=== PATIENT | female | born 1975 | race Asian ===

== ENCOUNTER 2020-09-01 20:50 | Emergency (ER) | payer OTHER ==
[~2020-09-01] VITALS: Ht 157.5 cm; Wt 71.2 kg
[2020-09-01 20:57] VITALS: BP 137/89
--- NOTE | 2020-09-01 20:57 | NUR ---
TO BED AMBULATORY
--- NOTE | 2020-09-01 21:10 | NUR ---
PT. IS A 45 Y/O FEMALE THAT CAME TO ED WITH C/O OF N/V/D. PT. STATES IT STARTED AROUND 6-7PM AFTER EATING [employer]Q. UPON ASSESSMENT, PT. STATED THAT SHE VOMITED TWICE TODAY AND HAD DIARRHEA ONCE. PT. RATES HER PAIN AT A 0/10 AT THIS TIME AND VOICES NO COMPLAINTS. SKIN IS PINK/WARM/DRY; AAOX4 WITH EVEN AND STEADY GAIT; HR EVEN AND REGULAR; PT DENIES ANY FEVER, CP, SOB, OR COUGH AT THIS TIME; VSS; PATIENT POSITIONED FOR COMFORT; HOB ELEVATED; BEDRAILS UP X2; BED DOWN. ER MD MADE AWARE OF PT STATUS. PMH: PARANOID SCHIZOPRENIA ALLERGIES: NKA
--- NOTE | 2020-09-01 21:29 | NUR ---
LAB AT BEDSIDE
[2020-09-01] MEDS ORDERED: ONDANSETRON 4 MG ODT PO ONE (21:45)
[2020-09-01 21:48] LABS: BASOPHILS % (AUTO) 0.3 % (0.0-2.0); EOSINOPHILS % (AUTO) 0.3 % (0.0-4.0); HEMATOCRIT 33.9 % (36-48); LYMPHOCYTES # (AUTO) 0.9 K/uL (2.5-16.5); LYMPHOCYTES % (AUTO) 8.4 % (20.5-51.1); MEAN CORPUSCULAR HEMOGLOBIN 27 pg (27-31); MEAN CORPUSCULAR HGB CONC 33 g/dL (33-37); MEAN CORPUSCULAR VOLUME 84.2 fL (80-94); MONOCYTES # (AUTO) 0.5 K/uL (0.8-1.0); MONOCYTES % (AUTO) 5.1 % (1.7-9.3); NEUTROPHILS # (AUTO) 8.8 K/uL (1.8-7.7); NEUTROPHILS % (AUTO) 85.9 % (42.2-75.2); PLATELET COUNT (AUTO) 375 K/uL (140-450); RED BLOOD CELL COUNT(AUTO) 4.03 MIL/uL (4.20-5.40); RED CELL DISTRIBUTION WIDTH 15.5 % (11.6-13.7); WHITE BLOOD COUNT (AUTO) 10.2 K/uL (4.8-10.8)
[2020-09-01 22:05] LABS: ALBUMIN 3.7 g/dL (3.4-5.0); ANION GAP 18.1 (8-16); CARBON DIOXIDE 24.8 mmol/L (21-32); CREATININE 1.1 mg/dL (0.6-1.3); POTASSIUM 3.9 mmol/L (3.5-5.1); TOTAL BILIRUBIN 0.1 mg/dL (0.0-1.0)
--- NOTE | 2020-09-01 22:11 | NUR ---
PT. LAYING IN BED COMFORTABLY, VOICES NO COMPLANTS. AWAITING DISPOSITION.
[2020-09-01 22:22] LABS: BILIRUBIN,URINE NEGATIVE (NEGATIVE); BLOOD, URINE 1+ (NEGATIVE); COLOR,URINE YELLOW (YELLOW); LEUKOCYTE ESTERASE ,URINE NEGATIVE (NEGATIVE); NITRITE, URINE NEGATIVE (NEGATIVE); UGLUCOSE 3+ (NEGATIVE)
[2020-09-01 22:37] LABS: APPEARANCE,URINE SLIGHTLY HAZY (CLEAR)
[2020-09-01 22:38] LABS: RBC,URINE 0-5 /HPF (0-5)
[2020-09-01 22:39] LABS: WBC,URINE 16-25 (MOD) /HPF (0-5)
[2020-09-01] MEDS ORDERED: ONDA-24 PO (22:51)
[2020-09-01] MEDS ORDERED: CIPR500T4 PO (22:51)
[2020-09-01] MEDS ORDERED: METO-486 PO (22:52)
[2020-09-01 23:03] VITALS: BP 137/89
--- NOTE | 2020-09-01 23:03 | NUR ---
Patient discharged with v/s stable. Written and verbal after care instructions given and explained. Patient alert, oriented and verbalized understanding of instructions. Ambulatory with steady gait. All questions addressed prior to discharge. ID band removed. Patient advised to follow up with PMD. Rx of CIPRO AND REGLAN given. Patient educated on indication of medication including possible reaction and side effects. Opportunity to ask questions provided and answered.
== END 2020-09-01 23:03 | disposition home or self-care (01) ==
LOC: MED 20:50
DX: R11.2 Nausea with vomiting, unspecified (principal); R19.7 Diarrhea, unspecified; N39.0 Urinary tract infection, site not specified; F20.9 Schizophrenia, unspecified; R73.9 Hyperglycemia, unspecified; D64.9 Anemia, unspecified
CPT/HCPCS: 36415; 80053; 81001; 83690; 84702; 85025; 99283; Q0162; 81025